=== PATIENT | female | born 1970 | race American Indian/Alaskan Native ===

== ENCOUNTER 2016-07-26 08:28 | Emergency (ER) | payer MEDICAID ==
[2016-07-26] MEDS ORDERED: NORCO 5/325 PO ONE (10:05)
--- NOTE | 2016-07-26 10:48 | Emergency Department Report ---
ED Psych HPI - General Chief Complaint: Psych Stated Complaint: MH EVAL Time Seen by Provider: 07/26/16 09:57 Source: police, EMS Mode of arrival: Ambulatory Limitations: No Limitations - History of Present Illness Initial Comments: 45 her old female presents to the emergency department via EMS at the request of law enforcement for mental health evaluation. Per report, the patient was found outside of her apartment early this morning with no pants on. Reportedly the patient was "waiting for [employer]". Patient states she does not know why she was outside her apartment this morning. She states she thought she heard the fire alarm going off and went outside. Patient is complaining of right knee and foot pain. She also complaining of left flank pain. She states she has had multiple falls recently. She reports previous history of multiple cervical spine surgeries for disc disease. Patient denies suicidal or homicidal ideation. There are no other complaints. MD Complaint: altered mental status -: During the night History of same: No Quality: intermittent Improves With: none Worsens With: none Treatments Prior to Arrival: placed on mental he - Related Data Home Medications Medication Instructions Recorded Confirmed Last Taken Amitriptyline [Elavil] 10 - 40 mg PO QHS 07/26/16 07/26/16 Unknown Cyclobenzaprine [Flexeril 10 MG 10 mg PO QHS 07/26/16 07/26/16 Unknown TAB] Estradiol 2 mg PO DAILY 07/26/16 07/26/16 Unknown HYDROcodone/APAP 7.5-325 [[place] 1 tab PO Q8H 07/26/16 07/26/16 Unknown 7.5-325 mg TAB] Methocarbamol [Robaxin TAB] 1,000 mg PO Q6H 07/26/16 07/26/16 Unknown Allergies Allergy/AdvReac Type Severity Reaction Status Date / Time No Known Allergies Allergy Unverified 07/26/16 10:03 ED Review of Systems ROS: Stated complaint: MH EVAL Other details as noted in HPI Comment: All other systems reviewed and negative Gastrointestinal: as per HPI (left flank pain) Musculoskeletal: as per HPI, arthralgia ED Past Medical Hx - Past Medical History Previous Medical History?: Yes Additional medical history: cervical disc disease - Surgical History Past Surgical History?: Yes Additional Surgical History: multiple c-spine surgeries - Family History Family history: no significant - Social History Smoking Status: Former Smoker Substance Use Type: None - Medications Home Medications: Home Medications Medication Instructions Recorded Confirmed Last Taken Type Amitriptyline [Elavil] 10 - 40 mg PO QHS 07/26/16 07/26/16 Unknown History Cyclobenzaprine [Flexeril 10 MG 10 mg PO QHS 07/26/16 07/26/16 Unknown History TAB] Estradiol 2 mg PO DAILY 07/26/16 07/26/16 Unknown History HYDROcodone/APAP 7.5-325 [[place] 1 tab PO Q8H 07/26/16 07/26/16 Unknown History 7.5-325 mg TAB] Methocarbamol [Robaxin TAB] 1,000 mg PO Q6H 07/26/16 07/26/16 Unknown History ED Physical Exam - General Limitations: Altered Mental Status General appearance: alert, in no apparent distress - Head Head exam: Present: atraumatic, normocephalic - Eye Eye exam: Present: normal appearance, PERRL, EOMI - ENT ENT exam: Present: normal exam, normal orophraynx, mucous membranes moist - Neck Neck exam: Present: normal inspection, full ROM. Absent: tenderness - Respiratory Respiratory exam: Present: normal lung sounds bilaterally, chest wall tenderness (tenderness to palpation in the left lateral and posterior ribs. No ecchymosis noted. No crepitus or deformity noted.). Absent: respiratory distress - Cardiovascular Cardiovascular Exam: Present: regular rate, normal rhythm, normal heart sounds - GI/Abdominal GI/Abdominal exam: Present: soft, normal bowel sounds. Absent: distended, tenderness - Extremities Exam Extremities exam: Present: full ROM, tenderness, other (ecchymosis and edema noted to the right knee and foot. Mild tenderness to palpation over the right patella and diffusely to the right foot. No deformity noted.) - Back Exam Back exam: Present: normal inspection, full ROM. Absent: tenderness - Neurological Exam Neurological exam: Present: alert, oriented X3. Absent: motor sensory deficit - Psychiatric Psychiatric exam: Present: normal affect. Absent: homicidal ideation, suicidal ideation - Skin Skin exam: Present: warm, dry ED Course Vital Signs 07/26/16 07/26/16 07/26/16 08:44 09:01 09:18 Temperature 98.6 F 98.3 F Pulse Rate 85 94 H Respiratory 14 14 Rate Blood Pressure 135/75 Blood Pressure 154/97 [Left] Blood Pressure 155/105 [Right] O2 Sat by Pulse 98 99 99 Oximetry 07/26/16 11:22 Temperature Pulse Rate Respiratory 14 Rate Blood Pressure Blood Pressure [Left] Blood Pressure [Right] O2 Sat by Pulse Oximetry - Reevaluation(s) Reevaluation #1: 07/26/16 13:00 Patient has been medically cleared. Patient is awaiting mental health evaluation. Reevaluation #2: 07/26/16 13:58 Patient has been evaluated by mental health. Patient has been cleared for discharge. Patient will be discharged home at this time. ED Medical Decision Making - Lab Data Result diagrams: 07/26/16 11:30 07/26/16 11:30 - Differential Diagnosis drug intoxication, fracture, contusion, psychosis Critical care attestation.: If time is entered above; I have spent that time in minutes in the direct care of this critically ill patient, excluding procedure time. ED Disposition Clinical Impression: Psychosis, transient Disposition: DISCHARGED TO HOME OR SELFCARE Is pt being admited?: No Condition: Stable Instructions: Brief Psychotic Disorder (ED) Referrals: PRIMARY CARE, [Primary Care Provider] - 3-5 Days Time of Disposition: 13:59
--- NOTE | 2016-07-26 10:48 | XRay Report ---
CHEST TWO VIEWS: 07/26/16 08:28:00 CLINICAL: Chest pain after fall. COMPARISON: None FINDINGS: Normal heart and pulmonary vasculature. The lungs are normally expanded and clear.The bones and soft tissues are normal. No fracture. IMPRESSION: Normal chest.
--- NOTE | 2016-07-26 10:49 | XRay Report ---
RIGHT FOOT THREE VIEWS: 07/26/16 10:07:00 CLINICAL: Fall and right foot pain. FINDINGS: No fracture or dislocation. Suspect dorsal soft tissue swelling of the entire foot. However no soft tissue air or foreign body. IMPRESSION: Nonspecific soft tissue swelling of the dorsum of the foot. No bony injury.
--- NOTE | 2016-07-26 10:50 | XRay Report ---
RIGHT KNEE THREE VIEWS: 07/26/16 08:28:00 CLINICAL: Fall and right knee pain. FINDINGS: Normal bones, joints and soft tissues. No fracture or dislocation. No joint effusion. IMPRESSION: Normal.
--- NOTE | 2016-07-26 10:59 | Cat Scan Report ---
CT HEAD WITHOUT CONTRAST: 07/26/16 CLINICAL: Altered mental status.. TECHNIQUE: 2.5-mm noncontrast scans. COMPARISON:None FINDINGS: The ventricles and sulci are normal for age. No abnormal density. No mass or mass effect. No hemorrhage, edema or extra-axial collection. The sinuses are clear. Normal orbits and soft tissues. The calvarium and skull base are intact. IMPRESSION: Normal study.
[2016-07-26 11:17] LABS: Urine Drugs of Abuse Note Disclamer
[2016-07-26 11:30] LABS: Bilirubin,Urine NEG (Negative); Blood,Urine NEG (Negative); Ketones,Urine TR mg/dL (Negative); Leukocyte Esterase,Urine NEG (Negative); Mucus,Urine FEW /HPF; Nitrite,Urine NEG (Negative); Protein,Urine <15 mg/dL mg/dL (Negative); Urobilinogen,Urine < 2.0 mg/dL (<2.0)
[2016-07-26 12:03] LABS: Anion Gap 20 mmol/L; Blood Urea Nitrogen 8 mg/dL (7-17); Calcium 8.7 mg/dL (8.4-10.2); Carbon Dioxide 23 mmol/L (22-30); Chloride 101.3 mmol/L (98-107); Glucose 91 mg/dL (65-100); Potassium 3.8 mmol/L (3.6-5.0); Sodium 140 mmol/L (137-145)
[2016-07-26 12:10] LABS: Basophils % (Auto) 0.4 % (0.0-1.8); Eosinophils % (Auto) 0.9 % (0.0-4.3); Mean Corpuscular HGB Conc 33 % (30-34); Mean Corpuscular Hemoglobin 32 pg (28-32); Mean Corpuscular Volume 95 fl (79-97); Platelet Count 288 K/mm3 (140-440); Red Cell Distribution Width 13.5 % (13.2-15.2); White Blood Count 8.5 K/mm3 (4.5-11.0)
[2016-07-26 15:34] VITALS: BP 154/90
== END 2016-07-26 15:35 | disposition home or self-care (01) ==
LOC: EEVIPCON 08:28 → ED 08:28
DX: F23 Brief psychotic disorder (principal); Z87.891 Personal history of nicotine dependence
CPT/HCPCS: 36415; 70450; 71020; 73562; 73630; 80048; 80307; 81001; 81025; 85025; 99285; G0480; 80320

== ENCOUNTER 2016-08-02 12:01 | Emergency (ER) | payer MEDICAID ==
--- NOTE | 2016-08-02 14:18 | Emergency Department Report ---
HPI - General Chief Complaint: Extremity Problem,Nontraumatic Time Seen by Provider: 08/02/16 13:31 - HPI HPI: Please [id number] female presents today complaining of headache, right knee pain, lower back pain post fall. Patient states that she has been falling multiple times in the past few weeks due to her knees giving out. Positive for multiple head injuries, with unknown loss of consciousness. Positive for nausea. Patient states that her orthopedic follow-up is scheduled for mid July. Patient also states that to prevent falling she has been crawling which is making her knee pain worse. Denies numbness, weakness, paresthesias. Denies chest pain, shortness of breath, abdominal pain. Patient has been worked up for repetitive falls at her last visit and will be following up with orthopedic and neurologist. ED Past Medical Hx - Past Medical History Additional medical history: cervical disc disease - Surgical History Additional Surgical History: multiple c-spine surgeries - Social History Smoking Status: Never Smoker Substance Use Type: None - Medications Home Medications: Home Medications Medication Instructions Recorded Confirmed Last Taken Type Amitriptyline [Elavil] 10 - 40 mg PO QHS 07/26/16 08/02/16 Unknown History Cyclobenzaprine [Flexeril 10 MG 10 mg PO QHS 07/26/16 08/02/16 Unknown History TAB] Estradiol 2 mg PO DAILY 07/26/16 08/02/16 Unknown History HYDROcodone/APAP 7.5-325 [[place] 1 tab PO Q8H 07/26/16 08/02/16 Unknown History 7.5-325 mg TAB] LORazepam [Ativan] 1 mg PO TID PRN #10 tablet 07/26/16 08/02/16 Unknown Rx Methocarbamol [Robaxin TAB] 1,000 mg PO Q6H 07/26/16 07/26/16 Unknown History Naproxen [Naprosyn] 500 mg PO BID #30 tablet 08/02/16 Unknown Rx ED Review of Systems ROS: Stated complaint: FALL Other details as noted in HPI Constitutional: denies: chills, fever, malaise Eyes: denies: eye pain ENT: denies: ear pain, throat pain, congestion Respiratory: denies: cough, shortness of breath, wheezing Cardiovascular: denies: chest pain, palpitations Endocrine: no symptoms reported Gastrointestinal: denies: abdominal pain, nausea, vomiting Musculoskeletal: back pain, arthralgia Neurological: headache. denies: weakness, numbness, paresthesias Physical Exam - Physical Exam Vital Signs: Vital Signs 08/02/16 12:15 Temperature 99.0 F Pulse Rate 109 H Respiratory 18 Rate Blood Pressure 156/101 O2 Sat by Pulse 98 Oximetry Physical Exam: GENERAL: The patient is well-developed and well-nourished. Patient is in NAD. HEAD: Normocephalic. Atraumatic. Tenderness to palpation over his patella region. EYES: Extraocular motions are intact, PERRL. NOSE: Normal nasal mucosa with no nasal discharge. THROAT: No erythema, swelling or exudates. NECK: No midline or paraspinal tenderness to palpation.. No meningitic signs are noted. BACK: Full ROM. Midline and left-sided paraspinous tenderness to palpation of the lumbar region. No tenderness to palpation of sciatic notch bilaterally. Negative straight leg raise bilaterally. CHEST/LUNGS: Clear to auscultation throughout. HEART/CARDIOVASCULAR: Regular rate and rhythm. ABDOMEN: Abdomen is soft, nontender. No guarding or rebound tenderness. RIGHT KNEE: Full range of motion, but painful. Tenderness to palpation over the patella. Normal sensation. Peripheral pulses intact. Capillary refill less than 2 seconds. Neuro: Alert and oriented 3, normal gait, fluid speech, EOMs intact, normal facial sensation, strength exam 5/5 upper and lower extremities, GCS equals 15, finger to nose normal, negative Romberg test. ED Course Vital Signs 08/02/16 12:15 Temperature 99.0 F Pulse Rate 109 H Respiratory 18 Rate Blood Pressure 156/101 O2 Sat by Pulse 98 Oximetry ED Medical Decision Making - Lab Data Vital Signs 08/02/16 08/02/16 08/02/16 12:15 15:26 17:01 Temperature 99.0 F 98.8 F Pulse Rate 109 H 89 Respiratory 18 12 14 Rate Blood Pressure 156/101 Blood Pressure 148/77 [Left] O2 Sat by Pulse 98 99 Oximetry - Radiology Data Radiology results: report reviewed PROCEDURE: CT HEAD/BRAIN WO CON TECHNIQUE: Computerized tomography of the head was performed without contrast material. HISTORY: head injury, LOC unknown COMPARISON: CT exam dated July 26, 2016 FINDINGS: The visualized portions of the paranasal sinuses are clear. Mastoid air cells are clear. There is no calvarial fracture. There is no hydrocephalus. No acute intracranial hemorrhage or mass effect is seen. There is no evidence of acute CVA. IMPRESSION: No abnormalities are seen. PROCEDURE: XR SPINE LUMBOSACRAL 2-3V TECHNIQUE: Three views of the lumbar spine are obtained HISTORY: midline tenderness COMPARISON: No prior studies are available for comparison. FINDINGS: Mild levoscoliosis is seen centered in the mid lumbar spine. No compression fracture or spondylolisthesis is seen. No disc space narrowing is seen. Mild arthritic changes are seen in the facets at L5-S1. Likely phleboliths are seen in the right lower quadrant the abdomen and pelvis. IMPRESSION: Mild scoliosis and arthritic changes are seen. PROCEDURE: XR KNEE 3V RT TECHNIQUE: Three views of the right knee are obtained HISTORY: Pain post crawling COMPARISON: No prior studies are available for comparison. FINDINGS: There is no fracture or dislocation. No arthritic changes are seen. There is no joint effusion. IMPRESSION: No abnormalities are seen. - Medical Decision Making 45-year-old female presents today complaining of right knee pain, headache and lower back pain post-repetitive falls. Her x-ray results and CT of brain are within normal limits, revealing no bleed, fracture or dislocation. Emphasized importance of following up with orthopedic and neurologist. Patient expressed understanding. Patient is in no acute distress at this time. She will be discharged home and is encouraged to follow up with a primary care provider. She will be sent home on naproxen and is encouraged to return to the emergency room for any worsening symptoms. Critical care attestation.: If time is entered above; I have spent that time in minutes in the direct care of this critically ill patient, excluding procedure time. ED Disposition Clinical Impression: Fall Qualifiers: Encounter type: initial encounter Qualified Code(s): W19.XXXA - Unspecified fall, initial encounter Knee pain Qualifiers: Laterality: right Chronicity: acute Qualified Code(s): M25.561 - Pain in right knee Headache Qualifiers: Headache type: post-traumatic Headache chronicity pattern: acute headache Lower back pain Qualifiers: Chronicity: acute Back pain laterality: midline Sciatica presence: without sciatica Qualified Code(s): M54.5 - Low back pain Disposition: DISCHARGED TO HOME OR SELFCARE Is pt being admited?: No Does the pt Need Aspirin: No Condition: Stable Instructions: Arthralgia (ED) Additional Instructions: Follow up with your primary care provider. Return to the Emergency Department if symptoms worsen. Prescriptions: Naproxen [Naprosyn] 500 mg PO BID #30 tablet Referrals: PRIMARY CAREMD [Primary Care Provider] - 3-5 Days NICOLE PANCHAL MD [Staff Physician] - 3-5 Days KATHY STEPHENS MD [Staff Physician] - 3-5 Days Forms: Work/School Release Form(ED) Time of Disposition: 17:54
[2016-08-02 15:34] VITALS: BP 148/77
--- NOTE | 2016-08-02 16:28 | XRay Report ---
FINAL REPORT PROCEDURE: XR SPINE LUMBOSACRAL 2-3V TECHNIQUE: Three views of the lumbar spine are obtained HISTORY: midline tenderness COMPARISON: No prior studies are available for comparison. FINDINGS: Mild levoscoliosis is seen centered in the mid lumbar spine. No compression fracture or spondylolisthesis is seen. No disc space narrowing is seen. Mild arthritic changes are seen in the facets at L5-S1. Likely phleboliths are seen in the right lower quadrant the abdomen and pelvis. IMPRESSION: Mild scoliosis and arthritic changes are seen.
--- NOTE | 2016-08-02 16:34 | XRay Report ---
FINAL REPORT PROCEDURE: XR KNEE 3V RT TECHNIQUE: Three views of the right knee are obtained HISTORY: Pain post crawling COMPARISON: No prior studies are available for comparison. FINDINGS: There is no fracture or dislocation. No arthritic changes are seen. There is no joint effusion. IMPRESSION: No abnormalities are seen.
--- NOTE | 2016-08-02 16:53 | Cat Scan Report ---
FINAL REPORT PROCEDURE: CT HEAD/BRAIN WO CON TECHNIQUE: Computerized tomography of the head was performed without contrast material. HISTORY: head injury, LOC unknown COMPARISON: CT exam dated July 26, 2016 FINDINGS: The visualized portions of the paranasal sinuses are clear. Mastoid air cells are clear. There is no calvarial fracture. There is no hydrocephalus. No acute intracranial hemorrhage or mass effect is seen. There is no evidence of acute CVA. IMPRESSION: No abnormalities are seen.
[2016-08-02] MEDS ORDERED: TORADOL IM ONE (17:49)
== END 2016-08-02 18:10 | disposition home or self-care (01) ==
LOC: ED 12:01
DX: M25.561 Pain in right knee (principal); G44.309 Post-traumatic headache, unspecified, not intractable; M54.5 Low back pain
CPT/HCPCS: 70450; 72100; 73562; 96372; 99284; J1885